=== PATIENT | female | born 1985 | race Two or more races ===

== ENCOUNTER 2019-07-25 06:56 | Emergency (ER) | payer SELFPAY ==
[~2019-07-25] VITALS: Ht 160 cm; Wt 81.8 kg
[2019-07-25 09:52] VITALS: BP 127/84
[2019-07-25] MEDS ORDERED: IBUPROFEN 600 MG TABLET PO ONE (11:00)
[2019-07-25] MEDS ORDERED: CEPHALEXIN MONOHYDRATE 500 MG CAPSULE PO ONE (11:00)
[2019-07-25] MEDS ORDERED: LIDOCAINE/PF 1% 2 ML VIAL IM ONE (11:15)
[2019-07-25] MEDS ORDERED: CefTRIAXone SODIUM 1 GM/VIAL IM ONE ×2 (11:15)
== END 2019-07-25 10:10 | disposition home or self-care (01) ==
LOC: EMS 06:58
DX: L03.116 Cellulitis of left lower limb (principal); L03.115 Cellulitis of right lower limb